=== PATIENT | male | born 1960 | race Two or more races ===

== ENCOUNTER 2019-07-02 15:28 | Emergency (ER) | payer SELFPAY ==
--- NOTE | 2019-07-02 15:32 | ED Physician Documentation ---
History of Present Illness - Stated complaint Stated Complaint: CP - Additonal information Additional information: This is a 58-year-old male with a history of hypertension, hyperlipidemia, past obesity, and a strong family cardiac history, who presents with chest pain. The pain began when he was walking yesterday afternoon, and is been fairly constant since then. It is on the left side of his chest, it is non-radiating. He denies any shortness of breath. He states that he had a stress test several years ago in [facility], and they reportedly told him that it was not normal. He has never had a catheterization. His pain is currently moderate in severity. Review of Systems Constitutional: denies: Fever Cardiac: reports: Chest pain / pressure Respiratory: denies: Dyspnea GI: denies: Abdominal Pain : denies: Dysuria Musculoskeletal: denies: Neck pain PD PAST MEDICAL HISTORY - Past Medical History Cardiovascular: Hypertension, High cholesterol Endocrine/Autoimmune: Type 2 diabetes - Present Medications Home Medications: Ambulatory Orders Medication Instructions Recorded Confirmed Acarbose 50 mg PO BID 07/02/19 07/02/19 Acarbose [Precose] 50 mg BID 07/02/19 07/02/19 Bisoprolol Fumarate 1.25 mg PO DAILY 07/02/19 07/02/19 Gliclazide 80 mg BID 07/02/19 Valsartan [Diovan] 80 mg DAILY 07/02/19 07/02/19 Vildagliptin 50/ Metforming 85 1 tab BID 07/02/19 - Allergies Allergies/Adverse Reactions: Allergies Allergy/AdvReac Type Severity Reaction Status Date / Time No Known Drug Allergies Allergy Verified 07/02/19 15:49 PD ED PE NORMAL - Vitals Vital signs reviewed: Yes - General General: Alert and oriented X 3, No acute distress - HEENT HEENT: PERRL - Neck Neck: Supple, no meningeal sign - Cardiac Cardiac: RRR - Respiratory Respiratory: No respiratory distress, Clear bilaterally - Abdomen Abdomen: Soft, Non tender, Non distended - Derm Derm: Warm and dry - Extremities Extremities: No deformity - Neuro Neuro: Alert and oriented X 3 - Psych Psych: Normal mood, Normal affect Results - Vitals Vitals: Vital Signs - 24 hr 07/02/19 07/02/19 15:31 16:00 Temperature 37 C Heart Rate 95 101 H Respiratory 16 19 Rate Blood Pressure 165/89 H 128/81 H O2 Saturation 98 95 Oxygen O2 Source Room air - EKG (time done) 15:38 Other comments: Other comments (Rate 91, rhythm sinus, there is ST elevation in V2, V3 V4, with a Wellens pattern as well. There is no significant ST depression. There are Q waves in the inferior leads. Called as a STEMI.) - Labs Labs: Laboratory Tests 07/02/19 07/02/19 07/02/19 15:45 15:45 15:45 WBC 13.2 H RBC 5.26 Hgb 16.4 Hct 46.7 MCV 88.8 MCH 31.2 H MCHC 35.1 RDW 12.2 Plt Count 221 MPV 8.8 Neut # (Auto) 9.9 H Lymph # (Auto) 2.0 Cook # (Auto) 1.1 H Eos # (Auto) 0.1 Baso # (Auto) 0.1 Absolute Nucleated RBC 0.00 Nucleated RBC % 0.0 PT 12.2 INR 1.1 Sodium 130 L Potassium 4.2 Chloride 97 L Carbon Dioxide 22 Anion Gap 11.0 BUN 17 Creatinine 0.8 Estimated GFR (MDRD) 99 Glucose 527 H* Calcium 9.2 Total Bilirubin 1.1 H AST 91 H ALT 42 Alkaline Phosphatase 111 Troponin I High Sens Total Protein 7.0 Albumin 4.2 Globulin 2.8 Albumin/Globulin Ratio 1.5 Lipase 100 H 07/02/19 15:45 WBC RBC Hgb Hct MCV MCH MCHC RDW Plt Count MPV Neut # (Auto) Lymph # (Auto) Cook # (Auto) Eos # (Auto) Baso # (Auto) Absolute Nucleated RBC Nucleated RBC % PT INR Sodium Potassium Chloride Carbon Dioxide Anion Gap BUN Creatinine Estimated GFR (MDRD) Glucose Calcium Total Bilirubin AST ALT Alkaline Phosphatase Troponin I High Sens 46227.7 H* Total Protein Albumin Globulin Albumin/Globulin Ratio Lipase PD MEDICAL DECISION MAKING - ED course Complexity details: considered differential (ACS, STEMI, pneumothorax, PE, musculoskeletal pain) ED course: Patient arrives, EKG was obtained which shows ST elevation in V2, V3, and V4 with a Wellens type pattern. He does not have a past EKG for comparison. He is having active chest pain, STEMI was called. He was given aspirin, heparin, heparin drip was started. He is also given nitroglycerin, With the nitroglycerin had improvement of his chest pain down to 0. [facility] was immediately called, I spoke with Dr. Kirk in the emergency department who accepted the patient in transfer. He agreed with aspirin and heparin, did not recommend Plavix or Brilinta at this time. EKG was faxed over. Patient was transferred via ALS as soon as possible. Patient and his son were updated with the plan, they agreed. In order to prevent delays, he did not receive an x-ray while here. His labs resulted after he was already transferred, his high- sensitivity troponin is over 10,000. Glucose is also >500. [place] was updated with these results. Departure - Departure Disposition: ED Transfer to [facility] Clinical Impression: STEMI (ST elevation myocardial infarction) Qualifiers: Involved coronary artery: unspecified coronary artery Qualified Code(s): I21.3 - ST elevation (STEMI) myocardial infarction of unspecified site Condition: Serious
[2019-07-02] MEDS ORDERED: NITROGLYCERIN SL 0.4 MG TABLET SL STA (15:45)
[2019-07-02] MEDS ORDERED: ASPIRIN CHEW 81 MG TABLET PO STA (15:45)
[2019-07-02] MEDS ORDERED: HEPARIN 25000UNITS/500ML (D5W) 25,000 UNIT/500 ML BAG IV STA (15:49)
[2019-07-02 15:52] LABS: BASOPHILS # (AUTO) 0.1 10^3/uL (0.0-0.1); BASOPHILS % (AUTO) 0.4 %; EOSINOPHILS # (AUTO) 0.1 10^3/uL (0.0-0.7); EOSINOPHILS % (AUTO) 0.6 %; HGB - HEMOGLOBIN 16.4 g/dL (14.0-18.0); LYMPHOCYTES % (AUTO) 14.8 %; MEAN CORPUSCULAR HEMOGLOBIN 31.2 pg (27.0-31.0); MEAN CORPUSCULAR HGB CONC 35.1 g/dL (32.0-36.0); MEAN CORPUSCULAR VOLUME 88.8 fL (80.0-94.0); MEAN PLATELET VOLUME 8.8 fL (7.4-11.4); MONOCYTES # (AUTO) 1.1 10^3/uL (0.0-1.0); MONOCYTES % (AUTO) 8.5 %; NEUTROPHILS # (AUTO) 9.9 10^3/uL (1.5-6.6); NEUTROPHILS % (AUTO) 75.2 %; PLT - PLATELET COUNT 221 10^3/uL (130-450); RED BLOOD COUNT 5.26 10^6/uL (4.70-6.10); RED CELL DISTRIBUTION WIDTH 12.2 % (12.0-15.0); WHITE BLOOD COUNT 13.2 x10^3/uL (4.8-10.8)
[2019-07-02 16:01] VITALS: BP 128/81
[2019-07-02] MEDS ORDERED: HEPARIN 5,000 UNIT/ML VIAL ONE (16:02)
[2019-07-02] MEDS ORDERED: HEPARIN 25000UNITS/500ML (D5W) 25,000 UNIT/500 ML BAG IV ONE (16:02)
[2019-07-02 16:14] LABS: ALBUMIN 4.2 g/dL (3.2-5.5); ALBUMIN/GLOBULIN RATIO 1.5 (1.0-2.2); BILIRUBIN,TOTAL 1.1 mg/dL (0.2-1.0); CALCIUM 9.2 mg/dL (8.5-10.3); CREATININE 0.8 mg/dL (0.6-1.2)
[2019-07-02 16:15] LABS: INR 1.1 (0.8-1.2); PT - PROTHROMBIN TIME 12.2 secs (9.9-12.6)
== END 2019-07-02 16:03 | disposition short-term general hospital (02) ==
LOC: ED 15:28
DX: I21.3 ST elevation (STEMI) myocardial infarction of unspecified site (principal); I10 Essential (primary) hypertension; E11.9 Type 2 diabetes mellitus without complications; Z79.84 Long term (current) use of oral hypoglycemic drugs
CPT/HCPCS: 36415; 80053; 83690; 84484; 85025; 85610; 93005; 96374; 99284; 99285; A9270

== ENCOUNTER 2019-07-02 16:06 | Outpatient (CLI) | payer SELFPAY | END 2019-07-02 16:07 | disposition short-term general hospital (02) | LOC: EMS 16:06 | PROVIDERS: ATTEND Surgery | DX: I21.3 ST elevation (STEMI) myocardial infarction of unspecified site (principal) ==

== ENCOUNTER 2024-03-26 14:47 | Outpatient (CLI) | payer BC ==
--- NOTE | 2024-03-28 10:35 | CT Report ---
PROCEDURE: Lung Cancer Screen INDICATIONS: HIST OF SMOKING TECHNIQUE: A CT scan of the chest was performed. Intravenous contrast media was not administered. Images were re corded and evaluated at appropriate window settings. Reformats: axial MIP of the chest, coronal and s agittal. For radiation dose reduction, the following was used: automated exposure control, adjustment of mA and/or kV according to patient size. COMPARISON: None. FINDINGS: Lungs and pleura: No pleural effusions. No pneumothorax. No suspicious pulmonary nodules which requi re follow up. Mediastinum: Heart size is normal. No pericardial effusion. No large vessel abnormality. No mediastin al adenopathy by size criteria. Dense coronary artery vascular calcification Chest wall and lower neck: Thyroid is unremarkable. No axillary or supraclavicular adenopathy by size . Bones: No aggressive osseous abnormality. Upper Abdomen: Unremarkable. IMPRESSION: Lung RAD: 1 - Negative. Recommendation: Continue annual screening in 12 Months with LDCT Non-Lung Significant Findings: Dense coronary artery vascular calcification Reviewed by: Domingo Mendes MD on 03/28/2024 9:34 AM HUNTER Approved by: Domingo Mendes MD on 03/28/2024 9:34 AM HUNTER Station ID: [id number]
== END 2024-03-26 14:48 | disposition home or self-care (01) ==
LOC: DI 14:47
PROVIDERS: ATTEND Internal Medicine
DX: Z12.2 Encounter for screening for malignant neoplasm of respiratory organs (principal); Z87.891 Personal history of nicotine dependence; I25.10 Atherosclerotic heart disease of native coronary artery without angina pectoris